=== PATIENT | male | born 1950 | race Caucasian/White ===

== ENCOUNTER → 2018-07-17 | Outpatient (CLI) | payer MEDICARE, BC ==
[~2018-07-17] MED LIST: DOCU-109 PO; HYDR-3164 PO; IBUP-1007 PO; METH-38 PO
[2018-07-17 16:15] LABS: BASO % 1 % (0-3); EOS # 0.1 x10^3/uL (0.0-0.7); EOS % 1 % (0-3); HEMATOCRIT 50.4 % (39.0-53.0); HEMOGLOBIN 16.8 g/dL (13.0-17.5); LYMPH # 2.9 x10^3/uL (1.0-4.8); LYMPH % 35 % (24-48); MEAN CORPUSCULAR HEMOGLOBIN 30 pg (25-35); MEAN CORPUSCULAR HGB CONC 33 g/dL (31-37); MEAN CORPUSCULAR VOLUME 90 fL (79-100); MONO # 0.7 x10^3/uL (0.0-1.1); MONO % 9 % (0-9); NEUT # 4.5 x10^3uL (1.8-7.7); NEUT % 55 % (31-73); PLATELET COUNT 285 x10^3/uL (140-400); RED BLOOD COUNT 5.59 x10^6/uL (4.30-5.70); RED CELL DISTRIBUTION WIDTH 13.9 % (11.5-14.5); WHITE BLOOD COUNT 8.2 x10^3/uL (4.0-11.0)
[2018-07-17 16:28] LABS: ALBUMIN 3.9 g/dL (3.4-5.0); CALCIUM 9.1 mg/dL (8.5-10.1); CREATININE 1.1 mg/dL (0.7-1.3); POTASSIUM 4.2 mmol/L (3.5-5.1); TOTAL BILIRUBIN 0.4 mg/dL (0.2-1.0)
== END | disposition home or self-care (01) ==
LOC: SURGPAT 13:34
PROVIDERS: ATTEND Neurological Surgery
DX: Z01.818 Encounter for other preprocedural examination (principal); M51.16 Intervertebral disc disorders with radiculopathy, lumbar region; M48.061 Spinal stenosis, lumbar region without neurogenic claudication
CPT/HCPCS: 36415; 80053; 85025; 87641

== ENCOUNTER 2018-07-27 10:13 | Observation (INO) | payer MEDICARE, BC ==
[~2018-07-27] VITALS: Ht 193 cm; Wt 122.5 kg
[~2018-07-27 10:13] MED LIST changes: +BACITRACIN 50,000 UNIT in IV NORMAL SALINE 1000ML BAG 1,000 ML IRR ONE; +BUPIVAC MPF-EPI 0.5%-1:200000 30 ML VIAL. ONE; -DOCU-109 PO; +GELATIN SPONGE SIZE 12-7MM SPONGE. TP ONE; -HYDR-3164 PO; +HYDROmorphone 2 MG/ML VIAL IV PRN; +IV RINGERS,LACTATED 1000ML 1,000 ML IV SCH; +KETOROLAC 60 MG/2 ML INJ FOR OR. ONE; +LIDOCAINE 1% PF 2 ML VIAL. ID PRN; -METH-38 PO; +MORPHINE SULFATE 4 MG/ML VIAL. IV PRN; +ONDANSETRON PF 4 MG/2 ML VIAL. IV PRN; +PROCHLORPERAZINE 10 MG/2 ML VIAL. IV PRN; +THROMBIN TOPICAL 20,000 UNIT SPRAY.SYRN KIT TP ONE; +fentaNYL PF VIAL 100 MCG/2 ML VIAL IV PRN
--- NOTE | 2018-07-27 11:00 | PREOP HP ---
DATE OF SERVICE: 07/27/2018. ANTICIPATED DATE OF SURGERY: 07/27/2018. HISTORY OF PRESENT ILLNESS: The patient is a pleasant 67-year-old who is having difficulty with low back pain and pain which radiates into both of his hips. Occasionally, he has left anterior thigh pain. There is no unsteadiness or weakness that he notices. His principal problem is pain which occurs primarily with standing. He says that he has had some improvement with walking. He rates his pain as a 5/10. If he is standing, he develops pain in his back and hip and if he sits, the pain resolves shortly and he is able to stand again. He does use a cart at the grocery store to help support him. He says his left leg is much more involved than the right. When the pain is severe, it tends to radiate to the anterior thigh. He has been through physical therapy without lasting benefit. PAST MEDICAL HISTORY: Arthritis. PAST SURGICAL HISTORY: Knee surgery, right rotator cuff and bilateral wrist surgeries. FAMILY HISTORY: Diabetes and an MS at an early age. SOCIAL HISTORY: Employed at [email or web address], . Denies substance abuse. Denies tobacco use. Drinks coffee and soda daily. ALLERGIES: SULFA. CURRENT MEDICATIONS: Advil, vitamin D, magnesium and [place]. REVIEW OF SYSTEMS: A 12-point review of systems was obtained and is noncontributory, except for that mentioned above. PHYSICAL EXAMINATION: NEUROSURGERY EXAMINATION: GENERAL APPEARANCE: Alert, pleasant, in no acute distress. HEENT: Head normocephalic, atraumatic. SKIN: Warm and dry. MUSCULOSKELETAL: Lumbar paraspinal muscle bulk is normal, restricted range of motion of the lumbar spine, [id number] tenderness of the lower lumbar spine with palpation, normal range of motion of the lower extremities bilaterally. EXTREMITIES: No clubbing, cyanosis or edema. NEUROLOGIC: Alert and oriented x 3, normal recent and remote memory, strength 5/5 in bilateral lower extremities, sensory is intact to light touch in bilateral lower extremities, reflexes are trace and symmetric in the lower extremities bilaterally, negative straight leg raising bilaterally, normal gait. IMAGING: I reviewed the lumbar MRI scan from 06/28/2018. On that study, the principal findings are at L2-L3, where there is moderately severe central canal stenosis due to central left paracentral focal disk protrusion combined with congenitally small canal. ASSESSMENT/ PLAN: I do believe that a significant portion of his symptoms are due to the problems at L2-L3. I explained to him that it is difficult to determine how much pain he is experiencing due to his lumbar spondylosis which is diffuse and how much of his pain is related to stenosis and nerve root irritation at L2-L3. Although I do feel the lumbar microsurgery at this level will be of benefit to him, I explained to him that I could not tell how much benefit he would receive. I spoke about the treatment options, including epidural steroid injections. He has no interest in proceeding with this. He has had physical therapy and does not wish to pursue that any longer either. He would like to have surgery and I agree to operate. I explained the surgery and the risks. I outlined the technique of the operation. I spoke about the expected postoperative course. He understands. He would like to go ahead. We will make the arrangements. AMILCAR FERNANDEZ MD DR: LEV/eulogio JOB#: [id number] / [id number] DORINDA
[2018-07-27] MEDS ORDERED: REMIFENTANIL 2 MG VIAL. IV ONE (12:40)
[2018-07-27] MEDS ORDERED: fentaNYL PF VIAL 250 MCG/5 ML VIAL ONE (12:40)
[2018-07-27] MEDS ORDERED: ROCURONIUM 50 MG/5 ML VIAL. ONE (12:40)
[2018-07-27] MEDS ORDERED: MIDAZOLAM HCL/PF 2 MG/2 ML VIAL. ONE (12:40)
[2018-07-27] MEDS ORDERED: PROPOFOL 100 ML IV ONE (13:01)
[2018-07-27] MEDS ORDERED: DESFLURANE > 120 MINUTES IH ONE (13:53)
[2018-07-27] MEDS ORDERED: DEXAMETHASONE SOD PHOS 20 MG/5 ML VIAL. ONE (13:53)
[2018-07-27] MEDS ORDERED: ONDANSETRON PF 4 MG/2 ML VIAL. ONE (13:53)
[2018-07-27] MEDS ORDERED: LIDOCAINE 2% PF 5 ML VIAL. ONE (13:53)
[2018-07-27] MEDS ORDERED: PROPOFOL 20 ML IV ONE (13:53)
--- NOTE | 2018-07-27 16:02 | DISCH ---
DISCHARGE INSTRUCTIONS Condition on Discharge Condition on Discharge: Stable Activity After Discharge Activity Instructions for Disc: Resume previous activity, Activity as tolerated Other activity instructions: no driving for a week Bathing Instructions: Shower-keep dressing dry Lifting Instructions after Dis: No heavy lifting, No pulling or pushing, Do not lift >10 pounds Diet after Discharge Additional Diet Restrictions: resume home diet Wound Incision Care Wound/Incision Care: Ice to area for comfort Other wound/incision instructi: may remove dressing in 48 hours if dry then may shower, no soaking Contacting the after DC Call your doctor for: Concerns you may have Follow-Up Follow up with: Dr. Fernandez's nurse in 2 weeks [phone] AMILCAR FERNANDEZ MD Jul 27, 2018 16:02
[2018-07-27] MEDS ORDERED: HYDR-3164 PO (16:08)
[2018-07-27] MEDS ORDERED: DOCU-109 PO (16:08)
[2018-07-27] MEDS ORDERED: METH-38 PO (16:08)
--- NOTE | 2018-07-27 16:25 | OP ---
DATE OF SURGERY: 07/27/2018 PREOPERATIVE DIAGNOSES: Central and left-sided disc herniation at L2-L3 with lumbar spinal stenosis, L2-L3. OPERATION PERFORMED: Bilateral hemilaminotomies and microdiscectomies L2-L3 with decompression of dura and nerve root, bilateral partial foraminotomies L2-L3 and the operation was done with EMG monitoring, fluoroscopy, microscopic dissection. SURGEON: Alex Younger M.D. NETEZZA DEVELOPER: Maryann HUNG assisted with the surgery. She assisted with the microdecompression as well as the closure. OPERATIVE FINDINGS: A large central and left-sided disc herniation along with a subligamentous and epidural components with marked compression of the dural sac. OPERATIVE INDICATIONS: This is a well-developed 67-year-old man who developed intractable back and bilateral leg pain and neurogenic claudication type pattern and was found to have lumbar spinal stenosis at L2-L3. I recommended lumbar microsurgical decompression after he had failed conservative measures. He understood the surgery, he understood the risks. He wished to go ahead. DESCRIPTION OF PROCEDURE: Following general endotracheal anesthesia, the patient was positioned prone on the Kevin table. Lumbar region was prepped and draped in standard fashion. KARINA hose and AV impulse boots were applied for DVT prophylaxis. The microscope was draped. Fluoroscopy was draped and brought into the field. Monitoring was established. Ancef 3 grams was given less than 1 hour prior to initiation of the surgery. Using fluoroscopic guidance, a midline incision was made over the L2-L3 interspace. I dissected down through skin and subcutaneous tissue and first reflected the paraspinal muscles to the left and placed a Spencer micro disc retractor, brought in the high speed air drill, confirming my position fluoroscopically, burred down a generous hemilaminotomy and then trimmed away very thickened ligamentum flavum. I worked virtually to the midline and then out laterally, performing a partial foraminotomy retracting the dura medially which was under considerable pressure. There were large epidural veins, which I coagulated and there was a large bulging disc and I incised the annulus and began to remove disc fragments. I then passed the [place] dental beneath the dura and encountered resistance and then with adjustment of the retractor. I was able to remove several epidural disc fragments, which when removed completely freed up the region. I entered into the disc space and took out further disc material and I confirmed my partial foraminotomy, I assured myself there were no retained fragments. I irrigated and removed the retractor, obtained hemostasis in the muscle. I then went to the right side, in a similar fashion, burred down a generous hemilaminotomy, trimmed away thickened ligamentum flavum, exposed the dura and the exiting L5 root and gently retracted medially. Again, a bulging disc, which I incised and performed discectomy. On this side that there was no epidural component, most of the disc had good relief from the left-sided approach and there was limited bulging of this side, but I did decompress well and assured myself that there were no retained fragments. I irrigated copiously again obtaining hemostasis with bipolar cautery. I removed the retractor, obtained hemostasis on both sides very carefully again with copious irrigation and then closed the wound in layers with absorbable suture. The skin was closed with a 4- 0 subcuticular stitch. The operation went very well and the patient taken uneventfully to recovery room. I was quite pleased with the surgery. ALEX YOUNGER MD DR: LEV/eulogio JOB#: [id number] / [id number] DORINDA
[2018-07-27] MEDS ORDERED: fentaNYL PF VIAL 100 MCG/2 ML VIAL ONE (17:07)
[2018-07-27] MEDS: fentaNYL PF VIAL 100 MCG/2 ML VIAL IV PRN ×2 (17:12→17:47)
[2018-07-27] MEDS ORDERED: ONDANSETRON PF 4 MG/2 ML VIAL. IV PRN (17:30)
[2018-07-27] MEDS ORDERED: MAG HYDROX/ALUMINUM HYD/SIMETH 30 ML ORAL.SUSP PO PRN (17:30)
[2018-07-27] MEDS ORDERED: 0.9 % SODIUM CHLORIDE 10 ML DISP.SYRIN. IV PRN (17:30)
[2018-07-27] MEDS ORDERED: NALOXONE 0.4 MG/ML VIAL. IV PRN (17:30)
[2018-07-27] MEDS ORDERED: ZOLPIDEM 5 MG TABLET. PO PRN (17:30)
[2018-07-27] MEDS ORDERED: MAGNESIUM HYDROXIDE 2,400 MG/30 ML ORAL.SUSP. PO PRN (17:30)
[2018-07-27] MEDS ORDERED: fentaNYL PF VIAL 100 MCG/2 ML VIAL IV PRN (17:30)
[2018-07-27] MEDS ORDERED: diphenhydrAMINE HCL 25 MG CAPSULE PO PRN (17:30)
[2018-07-27] MEDS ORDERED: CALCIUM CARBONATE 500 MG TAB.CHEW PO PRN (17:30)
[2018-07-27] MEDS ORDERED: HYDROcodone/APAP 5/325MG 1 TAB TABLET PO PRN (17:30)
[2018-07-27] MEDS ORDERED: ACETAMINOPHEN 325 MG TABLET. PO PRN (17:30)
[2018-07-27 18:05] VITALS: BP_SYST 121; BP_SYST 137; BP_DIAS 82; BP_DIAS 85
--- NOTE | 2018-07-27 18:05 | NUR ---
Admitted from PACU per cart, alert & oriented slightly drowsy, states discomfort level 5/10, dressing on lumbar area clean, dry & intact, bilateral KARINA hose, bilateral IVY in place, IVF into right hand, oriented to surroundings, call light in reach, family members at bedside
[2018-07-27 18:20] VITALS: BP 133/85
[2018-07-27] MEDS: POTASSIUM CL 20MEQ D5-0.45NACL 1,000 ML IV SCH (18:21)
[2018-07-27] MEDS: ceFAZolin SODIUM 1 GM in IV DEXTROSE 5% 50 ML IV SCH (18:28)
[2018-07-27 18:35] VITALS: BP 128/86
[2018-07-27 18:50] VITALS: BP 140/83
[2018-07-27] MEDS: METHOCARBAMOL 750 MG TABLET PO SCH (20:47)
[2018-07-27] MEDS: DOCUSATE SODIUM 100 MG CAPSULE. PO SCH ×2 (20:47→21:00)
[2018-07-27 22:00] VITALS: BP 134/83
[2018-07-27 23:00] VITALS: BP 134/81
--- NOTE | 2018-07-28 00:32 | NUR ---
VSS. Ambulated in hallway w/o walker and SBA w/o difficulty. + voiding. Dressing D/I.
[2018-07-28] MEDS: ceFAZolin SODIUM 1 GM in IV DEXTROSE 5% 50 ML IV SCH ×2 (01:01→06:23)
[2018-07-28] MEDS: HYDROcodone/APAP 5/325MG 1 TAB TABLET PO PRN ×4 (02:05→13:17)
[2018-07-28] MEDS: POTASSIUM CL 20MEQ D5-0.45NACL 1,000 ML IV SCH (05:03)
[2018-07-28 06:52] VITALS: BP 94/54
--- NOTE | 2018-07-28 06:54 | NUR ---
BP 94/54. Denies symptoms of hypotension. Lortab given. Ice pack placed. Anticipates dismissal today.
[2018-07-28] MEDS: DOCUSATE SODIUM 100 MG CAPSULE. PO SCH (08:04)
[2018-07-28] MEDS: METHOCARBAMOL 750 MG TABLET PO SCH ×2 (08:04→13:12)
[2018-07-28 11:03] VITALS: BP 111/63
--- NOTE | 2018-07-28 13:31 | NUR ---
Discharged to home per w/c accompanied by spouse, see instruction sheet for details, ice pack & 2 composite dressings given for home use, all belongings taken with patient
--- NOTE | 2018-07-28 20:32 | DS ---
DATE OF DISCHARGE: 07/28/2018 DISCHARGE DIAGNOSES: Central and left-sided disc herniation at L2-L3 with lumbar spinal stenosis, L2-L3. OPERATION PERFORMED: Bilateral hemilaminotomies and microdiscectomies, L2-L3 with decompression of dura and nerve root and partial foraminotomies, L2-L3. HISTORY OF PRESENT ILLNESS: The patient is a 67-year-old man who developed intractable back and bilateral leg pain as well as neurogenic claudication type pattern pain and was found to have lumbar spinal stenosis at L2-L3. I recommended lumbar microsurgical decompression after he failed to improve with conservative measures. He understood the surgery, the risk and the expected postoperative course and wished to proceed. HOSPITAL COURSE: He was admitted to the floor postoperatively where he has done very well. He has been up ambulating in the room and in the halls. Physical therapy was initiated and instruction was given to him regarding his activities. His pain is well controlled. He is in good condition to discharge home. DISCHARGE MEDICATIONS: He will resume his medications per the MRAD. DISCHARGE INSTRUCTIONS: He was instructed regarding incision care, activity restrictions and expectations for the next several weeks. He will follow up in our office in 2 weeks. He understands to call with any questions or concerns. AMILCAR FERNANDEZ MD DR: DONNY/eulogio JOB#: [id number] / [id number] DORINDA
--- NOTE | 2018-07-31 16:07 | PATHOLOGY ---
[facility] Accession Number: [id number] . 01 Material submitted: . LUMBAR DISC AND DECOMPRESSION . 01 Clinical history: . Lumbar herniated disc and radiculopathy . 02 Diagnosis: Segments of fibrocartilaginous, fibroadipose, and skeletal muscle tissue and bone, lumbar disc and decompression: - Degenerative changes of fibrocartilaginous tissue. (JPM:stella; 07/31/2018) QMS/07/31/2018 . 02 Comment: There is no evidence of an acute inflammatory process or malignancy. . 02 Electronically signed: . Brett Bearden MD, Pathologist NPI- [id number] . 01 Gross description: . Received in formalin labeled "Ritesh Jones, lumbar disc and decompression," are several pieces of glistening, fibrous tissue measuring 5.5 x 3.0 x 0.9 cm in aggregate dimensions, containing small fragments of bone. The tissue submitted representatively in cassette A1, following decalcification. (TSD; 07/28/2018) TOB/TOB . 02 Microscopic: . . . 02 Pathologist provided ICD-10: M51.36 . 02 CPT . 992214, [id number] Specimen Comment: Report sent to / DR HARDING Performed at: 01 [facility] [address], [place], [place] [id number] MD José Hansen MD Phone: [phone] Performed at: 02 [facility] [address] [place], [place] [id number] MD Brett Bearden MD Phone: [phone]
== END 2018-07-28 13:35 | disposition home or self-care (01) ==
LOC: SURG 10:13 → EDUNIT# 12:30 → 4 SOUTHEST 17:01
PROVIDERS: ADMIT Neurological Surgery; ATTEND Neurological Surgery
DX: M48.062 Spinal stenosis, lumbar region with neurogenic claudication (principal); M19.90 Unspecified osteoarthritis, unspecified site; M51.16 Intervertebral disc disorders with radiculopathy, lumbar region; Z83.3 Family history of diabetes mellitus; M79.652 Pain in left thigh
CPT/HCPCS: 63047; 76000; 96365; 96366; 97116; 97162; 97530; G0378; G0379; G8978; G8979; G8980; J0690; J1100; J1885; J2001; J2250; J2704; J3010; J3490; J7030; J7120; 88304; 88311; J2405